=== PATIENT | male | born 1960 | race Caucasian/White ===

== ENCOUNTER 2017-12-19 08:06 | Emergency (ER) | payer OTHER ==
[~2017-12-19] VITALS: Ht 185.4 cm; Wt 72.7 kg
[2017-12-19 08:08] VITALS: TEMP 36.4; Ht 185.4 cm; Wt 72.7 kg
[2017-12-19] MEDS ORDERED: SODIUM CHLORIDE 0.9% 1000ML 1,000 ML IV STA (08:23)
--- NOTE | 2017-12-19 08:48 | EMERGENCY ROOM VISIT NOTE ---
History First contact with patient: 08:12 Chief Complaint: FLU LIKE SX Stated Complaint: DIZZY/FLU History of Present Illness The patient is a 57 year old male who presents to the Emergency Room with complaints of flu-like symptoms including sore throat, cough, headaches and body aches that started 4 days ago. Patient states that he has been feeling somewhat better, however this morning his cough was worse with increased chest congestion and he was feeling lightheaded. He reports a history of vertigo, and states that he had dehydration in the past that caused this. He also reports some chest tightness with coughing, reports a productive cough with yellow sputum. He reports positive sick contacts with similar symptoms. He did not have a flu shot this season. He states that his mother is also here as a patient, so he decided to get checked as well. Denies any vision changes, neck pain or stiffness, chest pain, shortness of breath, flank pain, abdominal pain, nausea or vomiting, diarrhea, bloody or black stools, urinary symptoms, or rash. Review of Systems A complete 10 point review of systems was reviewed with the patient with pertinent positives and negatives as per history of present illness. All else were negative. Past Medical/Surgical History Medical Problems: (1) No Known Active Medical Problems Social History Smoking Status: Never Smoker Alcohol Use: none Drug Use: none Current/Historical Medications No Active Prescriptions or Reported Meds Allergies No known allergies Physical Exam Vital Signs Date Time Temp Pulse Resp B/P (MAP) Pulse Ox O2 Delivery O2 Flow Rate FiO2 12/19/17 10:41 72 20 121/79 99 12/19/17 10:09 84 20 127/75 98 Room Air 12/19/17 09:00 86 12/19/17 08:55 86 20 128/82 96 Room Air 84 126/93 100 127/82 12/19/17 08:52 98 Room Air 12/19/17 08:52 98 Room Air 12/19/17 08:52 80 20 125/73 98 Room Air 12/19/17 08:08 36.4 81 18 114/78 97 Room Air Physical Exam CONSTITUTIONAL: Pleasant and cooperative. No acute distress. Mildly dehydrated , but otherwise well appearing and well nourished. HEENT: Normocephalic, atraumatic. PERRL, EOMI, no nystagmus. TMs normal bilaterally. Pharynx normal. Tacky mucous membranes. NECK: Supple, full active range of motion without discomfort. No cervical adenopathy. RESPIRATORY: Clear to auscultation bilaterally with no wheezing, crackles, rhonchi or stridor. Equal expansion bilaterally. CARDIOVASCULAR: Regular rate and rhythm with no murmurs, rubs or gallops. Normal peripheral perfusion. No edema. GASTROINTESTINAL: Soft, nontender, nondistended. No palpable masses or HSM. Bowel sounds present in all quadrants. MUSCULOSKELETAL: Full range of motion of all joints without discomfort. INTEGUMENTARY: No rash or other significant dermatologic conditions noted. NEUROLOGIC: Alert and oriented X 4 with normal affect. Cranial nerves II-XII grossly intact. No focal neurologic deficits noted. Normal strength and sensation in all 4 extremities. Normal speech. Normal gait observed. HEENT [place]. Normal [id number] testing. Medical Decision & Procedures ER Provider Diagnostic Interpretation: TWO VIEW CHEST CLINICAL HISTORY: Pneumonia. FINDINGS: PA and lateral chest radiographs are obtained. No prior studies are available for comparison at the time of dictation. The cardiomediastinal silhouette is unremarkable. The lungs and pleural spaces are clear. Mild apical scarring is observed. There is no pneumothorax. The bony thorax appears intact. IMPRESSION: No active disease in the chest. Laboratory Results 12/19/17 08:40 Red Blood Count 4.86, Mean Corpuscular Volume 88.1, Mean Corpuscular Hemoglobin 30.0, Mean Corpuscular Hemoglobin Concent 34.1, Mean Platelet Volume 9.7, Neutrophils (%) (Auto) 75.6, Lymphocytes (%) (Auto) 11.2, Monocytes (%) (Auto) 12.1, Eosinophils (%) (Auto) 0.9, Basophils (%) (Auto) 0.0, Neutrophils # (Auto ) 4.11, Lymphocytes # (Auto) 0.61, Monocytes # (Auto) 0.66, Eosinophils # (Auto ) 0.05, Basophils # (Auto) 0.00 12/19/17 08:40 Test 12/19/17 08:40 12/19/17 09:03 White Blood Count 5.44 K/uL (4.8-10.8) Red Blood Count 4.86 M/uL (4.7-6.1) Hemoglobin 14.6 g/dL (14.0-18.0) Hematocrit 42.8 % (42-52) Mean Corpuscular Volume 88.1 fL (80-100) Mean Corpuscular Hemoglobin 30.0 pg (25-34) Mean Corpuscular Hemoglobin Concent 34.1 g/dl (32-36) Platelet Count 189 K/uL (130-400) Mean Platelet Volume 9.7 fL (7.4-10.4) Neutrophils (%) (Auto) 75.6 % Lymphocytes (%) (Auto) 11.2 % Monocytes (%) (Auto) 12.1 % Eosinophils (%) (Auto) 0.9 % Basophils (%) (Auto) 0.0 % Neutrophils # (Auto) 4.11 K/uL (1.4-6.5) Lymphocytes # (Auto) 0.61 K/uL (1.2-3.4) Monocytes # (Auto) 0.66 K/uL (0.11-0.59) Eosinophils # (Auto) 0.05 K/uL (0-0.5) Basophils # (Auto) 0.00 K/uL (0-0.2) RDW Standard Deviation 40.1 fL (36.4-46.3) RDW Coefficient of Variation 12.5 % (11.5-14.5) Immature Granulocyte % (Auto) 0.2 % Immature Granulocyte # (Auto) 0.01 K/uL (0.00-0.02) Anion Gap 9.0 mmol/L (3-11) Est Creatinine Clear Calc Drug Dose 121.5 ml/min Estimated GFR () 122.1 Estimated GFR (Non- 105.4 BUN/Creatinine Ratio 18.5 (10-20) Calcium Level 9.0 mg/dl (8.5-10.1) Total Bilirubin 0.2 mg/dl (0.2-1) Aspartate Amino Transf (AST/SGOT) 58 U/L (15-37) Alanine Aminotransferase (ALT/SGPT) 88 U/L (12-78) Alkaline Phosphatase 76 U/L (45-117) Total Protein 7.3 gm/dl (6.4-8.2) Albumin 3.7 gm/dl (3.4-5.0) Globulin 3.6 gm/dl (2.5-4.0) Albumin/Globulin Ratio 1.0 (0.9-2) Urine Color YELLOW Urine Appearance CLEAR (CLEAR) Urine pH 6.0 (4.5-7.5) Urine Specific [place] 1.023 (1.000-1.030) Urine Protein TRACE (NEG) Urine Glucose (UA) NEG (NEG) Urine Ketones 1+ (NEG) Urine Occult Blood TRACE (NEG) Urine Nitrite NEG (NEG) Urine Bilirubin NEG (NEG) Urine Urobilinogen NEG (NEG) Urine Leukocyte Esterase NEG (NEG) Urine WBC (Auto) 1-5 /hpf (0-5) Urine RBC (Auto) 0-4 /hpf (0-4) Urine Hyaline Casts (Auto) 10-30 /lpf (0-5) Urine Epithelial Cells (Auto) >30 /lpf (0-5) Urine Bacteria (Auto) NEG (NEG) Urine Renal Epithelial Cells /lpf (0-5) Urine Mucus PRESENT (NONE PRSENT) Medications Administered Medications (Trade) Dose Ordered Sig/Aram Route Start Time Stop Time Status Last Admin Dose Admin Albuterol/ Ipratropium (Duoneb) 3 ml NOW STAT INH 12/19/17 09:04 12/19/17 09:05 DC 12/19/17 09:07 3 ML Albuterol (Ventolin Hfa Inhaler) 2 puffs NOW ONCE INH 12/19/17 10:30 12/19/17 10:31 DC 12/19/17 10:32 2 PUFFS ECG Indication: other (dizziness/lightheaded) Rate (beats per minute): 80 Rhythm: sinus rhythm Findings: PAC (with aberrant conduction), left axis deviation, other ( incomplete RBBB) Comparison ECG Date: no prior available Medical Decision CC: Patient presenting with complaint of flulike symptoms, dizziness/ lightheadedness Interpretation of Labs: No leukocytosis, no anemia, no significant electrolyte abnormalities, normal renal function, no significant abnormalities of the liver enzymes. UA consistent with mild dehydration, no evidence of UTI. Differential Diagnosis: Includes, but not limited to viral URI bronchitis, pneumonia, influenza, dehydration, electrolyte abnormality, orthostasis, vasovagal, vertigo, ACS dysrhythmia, among others. Medication Reconciliation: I attest that I have personally reviewed the patient' s current medication list. Initial vital signs review: I reviewed the patient's vital signs and interpret them as follows: T: Afebrile; BP: Normotensive; HR: Within normal limits; RR : Within normal limits; Pulse Ox: Within normal limits on room air. Blood pressure screening: The patient was found to have normal blood pressure on screening and does not require follow-up for repeat blood pressure check. Summary: Patient was evaluated at bedside, history and physical exam performed. Patient is alert and oriented, no acute distress and nontoxic appearing, resting calmly in the stretcher. Patient's primary complaint was dizziness, however he states this has resolved. Neurologic exam is normal with no focal deficits. Patient does appear mildly dehydrated on exam, is well-appearing. EKG reviewed, sinus rhythm with PACs and incomplete RBBB by my interpretation. Orders were placed at bedside for labs, UA, will encourage oral hydration, chest x-ray to evaluate for pneumonia. DuoNeb for cough and chest tightness. Patient discussed with Dr. Barrera, who agrees with my assessment and plan. Labs reviewed as above, these are unremarkable. CXR shows no acute abnormality. Patient reassessed multiple times throughout ED stay, he reports he is feeling better after oral fluids. Patient also reports that his cough was improved after the DuoNeb treatment. He was provided with an albuterol inhaler for home and instructed in its use. Patient was updated on all results and plan for discharge, encouraged to follow closely with his primary care provider. He was also given strict return precautions should his symptoms worsen, he verbalized understanding. Patient was discharged home in stable condition and ambulatory. Impression Primary Impression: URI with cough and congestion Departure Information Dispostion Home / Self-Care Condition GOOD Prescriptions No Active Prescriptions or Reported Meds Referrals Trey Sultana M.D. (PCP) Patient Instructions ED Flu, ED URI Viral, [facility] Additional Instructions You have been evaluated in the emergency department for your cough and chest pain. You most likely have a viral illness that should improve in the next 7-10 days. There is no evidence of pneumonia on your chest x-ray. Use the albuterol inhaler TWO puffs every 4-6 hours as needed for cough, wheezing, chest tightness. You should also use this before bed to help prevent coughing so that you can sleep better at night. For fever/headache/body aches, in you can use the following [id number] medicines (if >12 yo): - Regular strength (325mg/tab) Tylenol (acetaminophen) 2 tabs every 4-6 hours as needed. Do not exceed 10 tablets in a 24 hour period. Avoid taking more than 3000 mg of Tylenol per day. This includes any other sources of acetaminophen you may take on a regular basis. - Regular strength (200 mg/tab) Advil (ibuprofen) 3 tabs every 6-8 hours as needed. Do not exceed a dose of 2400 mg per day. - For best results, alternate dosing of Tylenol and Advil. Drink plenty of fluids to stay well hydrated. Please follow-up with your PCP or at an urgent care in the next few days to be rechecked if your symptoms are not getting any better. Please return to the emergency department if you develop the following symptoms of: inability to swallow solids, liquids, or drool; excessive wheezing or inability to catch your breath; worsening chest pain, coughing up blood, severe dizziness or passing out; fever or pain that becomes unmanageable with over-the- counter medications; or any other concerns. Work Instructions Return To Work: 2 days
[2017-12-19 08:52] VITALS: O2SAT 98
[2017-12-19 08:57] LABS: EOS % 0.9 %; EOS ABS # 0.05 K/uL (0-0.5); HEMATOCRIT 42.8 % (42-52); HEMOGLOBIN 14.6 g/dL (14.0-18.0); IG# 0.01 K/uL (0.00-0.02); LYMPH % 11.2 %; LYMPH ABS # 0.61 K/uL (1.2-3.4); MEAN CELL VOLUME 88.1 fL (80-100); MEAN CORPUSCULAR HGB CONC 34.1 g/dl (32-36); MEAN PLATELET VOLUME 9.7 fL (7.4-10.4); MONO % 12.1 %; MONO ABS # 0.66 K/uL (0.11-0.59); NEUT % 75.6 %; NEUT ABS # 4.11 K/uL (1.4-6.5); PLATELET COUNT 189 K/uL (130-400); RED CELL DISTRIBUTION WIDTH CV 12.5 % (11.5-14.5); RED CELL DISTRIBUTION WIDTH SD 40.1 fL (36.4-46.3); WHITE BLOOD COUNT 5.44 K/uL (4.8-10.8)
[2017-12-19] MEDS ORDERED: ALBUT/IPRATROP 3MG/0.5MG NEB 3 ML VIAL INH STA (09:04)
[2017-12-19 09:18] LABS: ALBUMIN 3.7 gm/dl (3.4-5.0); CREATININE 0.69 mg/dl (0.60-1.40); POTASSIUM 3.6 mmol/L (3.5-5.1)
[2017-12-19 09:21] LABS: TOTAL PROTEIN 7.3 gm/dl (6.4-8.2)
--- NOTE | 2017-12-19 09:25 | DIAGNOSTIC IMAGING REPORT ---
TWO VIEW CHEST CLINICAL HISTORY: Pneumonia. FINDINGS: PA and lateral chest radiographs are obtained. No prior studies are available for comparison at the time of dictation. The cardiomediastinal silhouette is unremarkable. The lungs and pleural spaces are clear. Mild apical scarring is observed. There is no pneumothorax. The bony thorax appears intact. IMPRESSION: No active disease in the chest. Electronically signed by: Noe Mendez M.D. 12/19/2017 9:23 AM Dictated Date/Time: 12/19/2017 9:23 AM
[2017-12-19] MEDS ORDERED: ALBUTEROL HFA 8 GM INHALER INH ONE (10:30)
[2017-12-19 10:41] VITALS: BP 121/79; PULSE 72; O2SAT 99
== END 2017-12-19 10:43 | disposition home or self-care (01) ==
LOC: C.EDB 08:08 → C.EDA 10:43
DX: J06.9 Acute upper respiratory infection, unspecified (principal)